=== PATIENT | female | born 1965 | race Caucasian/White ===

== ENCOUNTER 2018-07-12 14:59 | Emergency (ER) | payer OTHER ==
[~2018-07-12] VITALS: Ht 157.5 cm; Wt 118.0 kg
[~2018-07-12 14:59] MED LIST: FISH OIL1000 MG PO; LOSARTAN/HCT1 TA2 PO; MAXEPA1000 M1 PO; NIFEDIPINE30 MG PO; TRAZODONE HCL50 MG PO; TRAZODONE50 MG PO; WELLBUTRIN SR150 MG PO; ZYRTEC10 M5 PO; ZYRTEC10 MG PO
[2018-07-12 16:50] VITALS: BP 128/62
== END 2018-07-12 16:50 | disposition home or self-care (01) | DRG 605 ==
LOC: ED 14:59
DX: S80.02XA Contusion of left knee, initial encounter (principal); I10 Essential (primary) hypertension; W01.0XXA Fall on same level from slipping, tripping and stumbling without subsequent striking against object, initial encounter; Y92.89 Other specified places as the place of occurrence of the external cause